=== PATIENT | male | born 1960 | race African-American/Black ===

== ENCOUNTER → 2018-04-05 | Outpatient (CLI) | payer MEDICARE ==
--- NOTE | 2018-04-05 19:31 | Diagnostic Imaging Report ---
PROCEDURE:US RETROPERITONEAL ( KIDNEY ). COMPARISON:None. INDICATIONS:SERUM CREATININE RAISED, RT FLANK PAIN TECHNIQUE: Ortiz-scale and color sonographic images of the bilateral kidneys and bladder where obtained in transverse and longitudinal planes. FINDINGS: RIGHT KIDNEY: 11.7 cm, cortex 2.0 cm Cysts: 1.6 x 1.5 x 1.4 cm cystic, anechoic lesion in the superior pole Solid masses: None Stones: None Hydronephrosis: None Echogenicity: Normal LEFT KIDNEY: 9.9 cm, cortex 2.5 cm. There is focal prominence of the cortex at the interpolar region. Cysts: None Solid masses: None Stones: None Hydronephrosis: None Echogenicity: Normal Bladder: No focal lesions. Bilateral ureteral jets are identified. Prostate: 3.0 x 2.1 x 4.5 cm (estimated volume 14.3 mL). CONCLUSION: 1. Normal bilateral renal size and echogenicity. No hydronephrosis, stones, or obstruction. 2. Focal prominence of the cortex at the interpolar region of the left kidney, likely represents a prominent column of Margarito. Recommend CT abdomen to exclude focal mass. Nixon Washington M.D. Dictated by: Nixon Washington M.D. on 04/05/2018 at 19:33 Electronically approved by: Nixon Washington M.D. on 04/05/2018 at 19:33
== END ==
LOC: US 16:34
PROVIDERS: ATTEND Urology
DX: R79.89 Other specified abnormal findings of blood chemistry (principal)
CPT/HCPCS: 76770